=== PATIENT | female | born 1955 | race Two or more races ===

== ENCOUNTER 2022-10-19 09:09 | Inpatient (IN) | payer BC ==
[~2022-10-19] VITALS: Ht 160 cm; Wt 86.8 kg
--- NOTE | 2022-10-19 09:18 | NUR ---
BIBS FOR HYPERTENSION. PATIENT FELT NAUSEA AND WEAKNESS THIS MORNING WITH INTERMITTENT CHEST PAIN AND NOTICED HER BLOOD PRESSURE WAS HIGH. THE SYMPTOMS HAVE OCCURRED IN THE PAST WHEN STRESSED AT WORK BUT TODAY OCCURRED WITHOUT APPARENT PROVOCATION. A/O X 3, TOLERATING WELL ON ROOM AIR. WILL CONTINUE TO MONITOR.
[2022-10-19 09:42] LABS: BASOPHILS % (AUTO) 0.8 % (0.0-2.0); HEMATOCRIT 42 % (33-45); HEMOGLOBIN 13.9 g/dL (11.5-14.8); LYMPHOCYTES # (AUTO) 2.4 K/uL (0.8-4.8); LYMPHOCYTES % (AUTO) 42.2 % (20.0-44.0); MEAN CORPUSCULAR HGB CONC 33 g/dl (31.0-36.0); MEAN CORPUSCULAR VOLUME 98 fL (82-100); MONOCYTES # (AUTO) 0.5 K/uL (0.1-1.30); MONOCYTES % (AUTO) 8.3 % (2.0-12.0); NEUTROPHILS # (AUTO) 2.6 K/uL (1.8-8.9); NEUTROPHILS % (AUTO) 45.7 % (43.0-81.0); PLATELET COUNT (AUTO) 219 K/uL (150-450); RED BLOOD CELL COUNT(AUTO) 4.25 MIL/uL (4.0-5.2); WHITE BLOOD COUNT (AUTO) 5.7 K/uL (4.3-11.0)
--- NOTE | 2022-10-19 09:42 | NUR ---
BLOOD SAMPLES OBTAINED
[2022-10-19 09:56] LABS: CALCIUM, SERUM 9.6 mg/dL (8.5-10.1); CARBON DIOXIDE 25 mmol/L (21-32); CHLORIDE 107 mmol/L (98-107); CREATININE 0.9 mg/dL (0.6-1.3); GLUCOSE 97 mg/dL (74-106); POTASSIUM 4.3 mmol/L (3.5-5.1); SODIUM SERUM 142 mmol/L (136-145); UREA NITROGEN, BLOOD 13 mg/dL (7-18)
--- NOTE | 2022-10-19 10:18 | NUR ---
TROPONIN 57, MD AWARE
[2022-10-19 11:45] VITALS: O2SAT 99
--- NOTE | 2022-10-19 12:25 | NUR ---
GOT BED 304-2 ADMITTING INFORMED.
[2022-10-19] MEDS ORDERED: hydrALAZINE HCL IV 20 MG VIAL IV PRN (12:30)
[2022-10-19] MEDS ORDERED: MAGNESIUM HYDROXIDE 30 ML UDC PO PRN (12:30)
[2022-10-19] MEDS ORDERED: ACETAMINOPHEN 325 MG TABLET PO PRN (12:30)
[2022-10-19] MEDS ORDERED: Z GUARD REMEDY 4 OZ OINT TP PRN (12:30)
[2022-10-19] MEDS ORDERED: CLONIDINE HCL 0.1 MG TABLET PO PRN (12:30)
[2022-10-19] MEDS ORDERED: ONDANSETRON HCL/PF 4 MG/2 ML VIAL IVP PRN (12:30)
[2022-10-19] MEDS ORDERED: MAG HYDROX/AL HYDROX/SIMETH 30 ML UDC PO PRN (12:30)
--- NOTE | 2022-10-19 12:48 | NUR ---
REPORT GIVEN TO CORINNE KAPADIA
[2022-10-19] MEDS: NITROGLYCERIN PACKET 1 GM PACKET TD SCH ×2 (13:00→22:35)
[2022-10-19] MEDS ORDERED: ENOXAPARIN SODIUM 40 MG/0.4 ML DISP.SYRIN SQ SCH (13:00)
--- NOTE | 2022-10-19 13:29 | NUR ---
PATIENT TRANSFERED TO [facility], ALL CARE ENDORSED TO CORINNE KAPADIA. PATIENT STABLE AT TIME OF TRANSFER.
--- NOTE | 2022-10-19 13:35 | NUR ---
PERSONAL INJURY PARALEGALMEDICAL PARASITOLOGIST NOTE Patient admitted to unit via [facility] at 1325 accompanied by 2 ER staff with a chief complaint of chest pain and high blood pressure, diagnosis of NSTEMI. A/O x 4, able to make needs known, verbalized she has minimal stabbing chest pain with the scale of 2/10. On room air, tolerating well. Ambulatory, no skin issues. Attached to tele monitor with reading of SR-81. IV access in the left wrist #20g, sl. No weakness noted. Admission care done. Safety measures implemented: bed in lowest locked position, side rails up x 2, call light and tray table within easy reach. Will continue to monitor.
--- NOTE | 2022-10-19 14:00 | NUR ---
RN NOTE Patient refused Lovenox sq and Nitro-bid patch due at 1300 despite education. Will continue to monitor.
[2022-10-19 16:00] VITALS: BP 137/66; TEMP 98.3; O2SAT 96
[2022-10-19] MEDS: METOPROLOL TARTRATE 25 MG TABLET PO SCH (17:00)
--- NOTE | 2022-10-19 17:53 | NUR ---
RN NOTE Patient refused medication despite education and explaining the benefits. Patient verbalized she wanted to talk to MD first to know more about what is happening to her. Patient also states that there is no pain/discomfort at this time. MD aware. Will continue to monitor.
--- NOTE | 2022-10-19 19:15 | NUR ---
RN NOTE BP-168/76, NJ-79, flushy face, no , Hydralazine inj 20mg/ml prn given at 1910. Will endorse to multiple punch press operator.
[2022-10-19] MEDS: ASPIRIN 325 MG TABLET PO SCH (19:34)
--- NOTE | 2022-10-19 19:40 | NUR ---
SEWING MACHINE MAINTENANCE MECHANIC CLOSING NOTE Patient resting in bed. A/O x 4, able to make needs known. On room air, tolerating well. On tele monitor with current reading of SR. IV access in the left wrist #20g, sl. Needs attended. Safety measures implemented: bed in lowest locked position, side rails up x 2, call light and tray table within easy reach. Will endorse bayron to exploration geologist.
[2022-10-19 20:00] VITALS: BP 125/54; TEMP 98.4; O2SAT 96
--- NOTE | 2022-10-19 22:41 | NUR ---
MS/TELE/RN AT 20:00, PATIENT WAS IN BED AWAKE, ALERT, ORIENTED, NO SIGNS OF DISTRESS NOTED, CALL LIGHT IN REACH. PRESENTLY, PATIENT IS STILL AWAKE, NO CHANGE IN CONDITION. WILL MONITOR.
[2022-10-20] VITALS: BP 152/60; TEMP 98; O2SAT 96
[2022-10-20] MEDS: NITROGLYCERIN PACKET 1 GM PACKET TD SCH (05:23)
[2022-10-20 05:37] VITALS: BP 144/58; TEMP 98.3; O2SAT 98
[2022-10-20 06:03] LABS: BASOPHILS # (AUTO) 0.1 K/uL (0.0-0.2); BASOPHILS % (AUTO) 0.9 % (0.0-2.0); HEMATOCRIT 38 % (33-45); HEMOGLOBIN 12.9 g/dL (11.5-14.8); LYMPHOCYTES # (AUTO) 2.2 K/uL (0.8-4.8); LYMPHOCYTES % (AUTO) 34.4 % (20.0-44.0); MEAN CORPUSCULAR HGB CONC 34 g/dl (31.0-36.0); MEAN CORPUSCULAR VOLUME 98 fL (82-100); MONOCYTES # (AUTO) 0.6 K/uL (0.1-1.30); MONOCYTES % (AUTO) 9.5 % (2.0-12.0); NEUTROPHILS # (AUTO) 3.4 K/uL (1.8-8.9); NEUTROPHILS % (AUTO) 53.2 % (43.0-81.0); PLATELET COUNT (AUTO) 206 K/uL (150-450); RED BLOOD CELL COUNT(AUTO) 3.91 MIL/uL (4.0-5.2); WHITE BLOOD COUNT (AUTO) 6.3 K/uL (4.3-11.0)
[2022-10-20 06:19] LABS: CALCIUM, SERUM 9.5 mg/dL (8.5-10.1); MAGNESIUM 2.4 mg/dL (1.8-2.4); PHOSPHORUS 3.8 mg/dL (2.5-4.9); POTASSIUM 3.7 mmol/L (3.5-5.1)
--- NOTE | 2022-10-20 07:05 | NUR ---
MS/TELE/RN PATIENT IS AWAKE, ALERT, APPEAR COMFORTABLE, NO SIGNS OF DISTRESS NOTED, ALL NEEDS ATTENDED AT THIS TIME, ENDORSED TO NEXT RN FOR CONTINUITY OF CARE.
--- NOTE | 2022-10-20 07:45 | NUR ---
TRUST VAULT CUSTODIAN NOTES: RECEIVED PT ASLEEP, EASILY ROUSED, A/OX4, ABLE TO MAKE NEEDS KNOWN. ON RA WITH NO S/S OF SOB, DENIES PAIN AT THIS TIME, FAMILY AT BEDSIDE. TELE MONITOR READS SR WITH HR= 77. IV ACCESS AT L WRIST #20, SL, INTACT. ALL SAFETY MEASURES IN PLACE, CALL LIGHT AND TABLE WITHIN EASY REACH, WILL CONT WITH PLAN OF CARE DURING SHIFT.
[2022-10-20] MEDS: METOPROLOL TARTRATE 25 MG TABLET PO SCH (08:19)
[2022-10-20] MEDS: ASPIRIN 325 MG TABLET PO SCH (08:19)
[2022-10-20 08:28] LABS: CHOLESTEROL 251 mg/dL (<200); HDL CHOLESTEROL 66 mg/dL (40-60); LDL 152 mg/dL (0-99); TRIGLYCERIDES 146 mg/dL (30-150)
[2022-10-20 08:37] VITALS: BP 125/63; TEMP 98.4; O2SAT 96
[2022-10-20] MEDS ORDERED: ASPI-1169 PO (08:40)
[2022-10-20] MEDS ORDERED: METO25TA4 PO (08:40)
--- NOTE | 2022-10-20 09:50 | NUR ---
CORINNE MARTINEZ NOTES: PT STABLE FOR DC. STABLE ON RA, VITALS WNL, NO DISTRESS OR SOB NOTED. BELONGINGS LIST, NEW MEDICATION AND DC INSTRUCTIONS DISCUSSED WITH PT, VERBALIZED UNDERSTANDING AND SIGNED DOCUMENTS. MEDICAL RECORDS PRINTED AND PROVIDED TO PT. IV ACCESS AND ID BAND REMOVED, PT ESCORTED BY TRANSIT WORKER TO LOBBY VIA WHEELCHAIR, LEFT VIA PRIVATE CARE WITH SPOUSE. Addendum: 10/20/22 at 1210 by ASHLEY FINE RN TELE BOX, DC'D, GIVEN TO TECH
[2022-10-21] MEDS ORDERED: GLUCAGON,HUMAN RECOMBINANT 1 MG/VIAL VIAL ONE (18:56)
== END 2022-10-20 11:01 | disposition home or self-care (01) | DRG 282 ==
LOC: ER 09:18 → TELE 13:01
PROVIDERS: ADMIT Internal Medicine; ATTEND Internal Medicine
DX: I16.0 Hypertensive urgency (principal); I21.A1 Myocardial infarction type 2; E66.9 Obesity, unspecified; F41.9 Anxiety disorder, unspecified; I10 Essential (primary) hypertension; Z88.0 Allergy status to penicillin; G47.33 Obstructive sleep apnea (adult) (pediatric); Z68.33 Body mass index [BMI] 33.0-33.9, adult
CPT/HCPCS: 36415; 71045-TC; 80048-TC; 80061-TC; 83735-TC; 84100-TC; 84484-TC; 85025-TC; 87081-TC; 93307-TC; G0378; J0360; J1610; J1650